=== PATIENT | female | born 1975 | race Caucasian/White ===

== ENCOUNTER 2016-03-22 05:20 | Emergency (ER) | payer OTHER ==
--- NOTE | 2016-03-22 06:44 | DIAGNOSTIC IMAGING REPORT ---
PROCEDURE: CT HEAD WITHOUT CONTRAST INDICATION: Ground level fall, initial encounter TECHNIQUE: Noncontrast axial images with sagittal and coronal reformations. COMPARISON: Head CT 12/21/2015 FINDINGS: Status post left temporal craniotomy with moderate underlying left upper lobe encephalomalacia. Sulci, ventricular system, and brain parenchyma are otherwise normal. No evidence of hemorrhage, CVA or neoplasm. Chronic moderate right maxillary mucosal thickening. Mastoid are clear. IMPRESSION: 1. No acute intracranial abnormality 2. Status post left temporal craniotomy with moderate underlying left temporal lobe encephalomalacia, stable 3. Chronic right maxillary sinus disease 4. Findings discussed with Dr. Wright at 06:40 a.m., [place] Standard Time
--- NOTE | 2016-03-22 06:51 | DIAGNOSTIC IMAGING REPORT ---
PROCEDURE: XR CHEST 2 VIEW INDICATION: COUGH, initial encounter TECHNIQUE: PA and lateral view. COMPARISON: None. FINDINGS: Lungs are clear. Stable right-sided Port-A-Cath. Cardiovascular structures are normal. Bony thorax is unremarkable. IMPRESSION: 1. No acute changes 2. Right Port-A-Cath in place
--- NOTE | 2016-03-22 09:20 | ED ORDER SUMMARY ---
..... Patient: ZOIE PETTY OrderSheet [facility] VisitID: [id number] [place] [address] 40y, F Registration Date/Time: 03/22/2016 ORDER SHEET Weight: 78.0 kg (stated) Allergies: "all pain meds but Dilaudid" GENERAL ORDERS: Chest 2V Urgent (05:42 03/22/2016 Elena Fuentes) (Ack 5:48 CHagerty ER Foundry Hand) (6:10 GUnger) CT Head wo Cont Urgent (05:42 03/22/2016 Elena Fuentes) (Ack 5:48 CHagerty ER Foundry Hand) (6:10 GUnger) Manager Care (Continuous) (syncope) (05:43 03/22/2016 Elena Fuentes) (Ack 5:48 CHagerty ER Foundry Hand) (6:43 HKone R.N.) CBC w Diff Urgent (05:43 03/22/2016 Elena Fuentes) (Ack 5:48 CHagerty ER [facility]ry [facility]) (7:51 EHassan R.N.) CMP Urgent (05:43 03/22/2016 Elena Fuentes) (Ack 5:48 CHagerty ER [facility]ry Hand) (7:51 EHassan R.N.) UA-Culture if indicated Urgent (05:43 03/22/2016 Elena Fuentes) (Ack 5:48 CHagerty ER Foundry Hand) (7:52 EHassan R.N.) Urine Urgent (05:43 03/22/2016 Elena Fuentes) (Ack 5:48 CHagerty ER [facility]ry Hand) (7:52 EHassan R.N.) EKG - ER Stat (05:43 03/22/2016 Elena Fuentes) (Ack 5:48 CHagerty ER [facility]ry [facility]) (5:59 CHategekimana) Pulse oximeter (05:43 03/22/2016 Elena Fuentes) (Ack 5:48 CHagerty ER [facility]ry Hand) (6:43 HKone R.N.) Ice (05:49 03/22/2016 Elena Fuentes) (6:43 HKone R.N.) MEDICATION ORDERS: Tramadol PO 50 mg (NOW) (05:49 03/22/2016 Elena Fuentes) (Ack 5:59 HKone R.N.) (6:41 HKone R.N.) Tramadol PO 50 mg (NOW) (08:02 03/22/2016 Lisa R.N. verbal order read back to Elena Fuentes) (8:53 EHassan R.N.) IV FLUIDS: IV NS : initial bolus 1000 mL (1000 mL/hr), then none - for X1 (NOW) (05:43 03/22/2016 Elena Fuentes) (Ack 5:59 HKone R.N.) (6:41 HKone R.N.) ORDER SHEET NOTES: [Electronically signed by Ashley Cade R.N. (10:03/22/2016)] [Electronically signed by Martin Wright Dr. (08:59 03/26/2016)] [Electronically locked/signed by Ashley Cade R.N. (10:03/22/2016)]
--- NOTE | 2016-03-22 09:20 | ED NURSING NOTES ---
Clinical Report - Nurses [facility] [address] [place] [address] 03/22/2016 5:21 Patient: ZOIE PETTY TRIAGE Triage time 0525. Acuity: LEVEL 3. Chief Complaint: (fall, flu symptoms). SAMIRA COMA SCORE: Wink Coma Scale: 15- eyes open spontaneously (4); best verbal response- oriented x 4 (5); best motor response- obeys commands (6). --05:33 Jaclyn Ruano R.N. 05:26 03/22/16. BP: 98/60. HR: 79. RR: 16 (unlabored). O2 saturation: 98% on room air. Temp: 98.6 F (oral). Pain level now: 09/03. --05:33 Jaclyn Ruano R.N. correction to prior entry - pt did have a positive LOC. --05:37 Jaclyn Ruano R.N. Weight: 78 kg stated. Height/Length: 68 inches Per Patient. BMI: 26.2. --05:24 Jaclyn Ruano R.N. Medications Ascorbic Acid Oral 1000 mg, daily. Collace 100 mg, PRN. Glucosamine-Chondroitin Oral 2 tabs, daily. Hydrochlorothiazide Oral 25 mg, daily. Melatonin 10 mg, at bedtime (take 2 tablets). Mrs, every 12 hours (mushroom supplement). Multivitamins Oral 2 pills (for her). Neurontin Oral 300 mg (take 2 tablets in the am 3 tablets at pm). Relax, PRN. Robaxin 500 mg, PRN. Tramadol 50 mg, PRN. Wellbutrin Oral 150 mg, 2x a day. Zinc 30 mg, daily. --05:31 Jaclyn Ruano R.N. Ativan Oral. --05:31 Jaclyn Ruano R.N. Zofran ODT Oral. --05:31 Jaclyn Ruano R.N. Prochlorperazine Maleate Oral. --05:31 Jaclyn Ruano R.N. Ventolin HFA Inhalation. --05:32 Jaclyn Ruano R.N. Allergies "all pain meds but Dilaudid". --05:38 Jaclyn Ruano R.N. The following entry was struck by Jaclyn Ruano R.N., 05:38 (03/22/16) Reason - wrong value. <<STRICKEN ENTRY-- No Known Drug Allergy. --05:32 Jaclyn Ruano R.N. --END STRIKE>>. Medication/allergy information source: the patient. --05:33 Jaclyn Ruano R.N. History Arrived by EMS. Historian: patient. Primary physician (Dr. Mckinley Frost). ( pt got up to take some medicine, she fell in the kitchen, striking the back of her head. pt denies LOC, bump to back of head. pt has also had flu symptoms the past few days.). This started just prior to arrival. Treatment PHOTOTYPESETTER OPERATOR: None. SOCIAL HX: Never smoker. No alcohol use or drug use. ABUSE ASSESSMENT: No report of abuse. FALL RISK ASSESSMENT: Fall risk assessment completed. No fall risk identified. NUTRITIONAL RISK ASSESSMENT: The nutritional risk assessment revealed no deficiencies. FUNCTIONAL ASSESSMENT: Functional assessment: no impairments noted. LEARNING NEEDS ASSESSMENT: The learning needs assessment revealed no barriers. SKIN INTEGRITY ASSESSMENT: Skin integrity risk assessment completed. No skin integrity risk identified. --05:33 Jaclyn Ruano R.N. PROBLEMS: Tension-Type Headache. Thrombocytopenia. Gastroesophageal Reflux. Mitral Valve Prolapse. Headache. Intracranial Mass. Hypertension. Cancer. Infectious Mononucleosis. --05:33 Jaclyn Ruano R.N. ADDITIONAL SURGERIES: Brain tumor. Hip Surgery. Hysterectomy. Knee Surgery. Mastectomy. --05:33 Jaclyn Ruano R.N. Interventions ID band on patient. To treatment room. --05:33 Jaclyn Ruano R.N. PHYSICAL ASSESSMENT bump noted to back of head. To room via stretcher. GENERAL / NEURO / PSYCH: Alert. Oriented X 4. Appears in pain. RESPIRATORY: Respirations not labored. SKIN: Skin intact. Skin is warm and dry. Normal skin turgor. --05:39 Jaclyn Ruano R.N. NURSING PROGRESS NOTES Patient gowned. Two patient identifiers checked. Call light placed in reach. Side rails up x 2. Bed placed in lowest position. Brakes of bed on. Patient ready for evaluation. --05:33 Jaclyn Ruano R.N. EKG time: (0555). EKG was ordered, performed by a tech and shown to the ED physician. --05:59 Stacey Garvin 06:20 03/22/2016 Site #1 accessed indwelling Powerport in the right subclavian using a 20g, 1 inch needle following sterile technique; 1 attempt. Good blood return noted. Site prepped with chlorhexidine. Blood drawn: rainbow set. Labeled in the presence of the patient and sent to the lab. Flushed with 10 mL saline. --06:41 Jaclyn Ruano R.N. 06:25 03/22/2016 Started bag #1 1000 mL IV Fluids IV NS (Saline); at 999 mL/hr over 1 hour(s) via site #1 via IV pump. Allergies verified and confirmed 5 rights. IV patency established. IV site checked: no pain, redness, or swelling. IV flushed thoroughly pre- and post-medication administration. --06:41 Jaclyn Ruano R.N. 06:30 03/22/2016 Tramadol (TraMADol HCl) PO Tablets 50 mg given. Allergies verified, confirmed 5 rights and sedative warning given to the patient. --06:41 Jaclyn Ruano R.N. pt also given ice pack for bump to back of head. Cardiac rhythm: normal sinus rhythm. surveillance monitor, pulse oximeter and NIBP monitor placed on patient; color television console monitor- Lead II. --06:51 Jaclyn Ruano R.N. 07:48 03/22/2016 Site #1 reassessed; patent and infusing well. Converted to saline lock. --07:48 Ashley Cade R.N. 07:51 03/22/2016 Tramadol PO Response: no adverse reaction symptoms are the same. The patient feels the same. --07:51 Ashley Cade R.N. 07:53 03/22/2016 IV Fluids IV NS Response: no adverse reaction symptoms have improved the patient feels better. --07:53 Ashley Cade R.N. 07:00 03/22/16. BP: 117/69 taken on the right arm, while lying. HR: 89. RR: 14. O2 saturation: 100% on room air. Temp: 99.8 F (oral). Pain level now: 08/04. --07:54 Ashley Cade R.N. Monitoring of patient in place. Reassurance given. Reassessment after fluids administered. She is calm and resting quietly. Overall patient status is improved- she states feels the same. GENERAL / NEURO / PSYCH: The patient reports headache. RESPIRATORY: Denies difficulty breathing. CVS: Denies chest pain. GI / : Denies nausea. Two patient identifiers checked. Call light placed in reach. Side rails up x 2. Bed placed in lowest position. Brakes of bed on. Brakes of chair on. Care transferred and report received (Monisha Camarillo). --07:54 Ashley Cade R.N. 08:01 03/22/2016 IV Fluids IV NS Discontinued: bag #1 infused upon discharge. Total amount infused: 68259 mL. IV patency established. IV site checked: no pain, redness, or swelling. IV flushed thoroughly. --10:01 Ashley Cade R.N. 08:28 03/22/2016 Tramadol (TraMADol HCl) PO Tablets 50 mg given. Allergies verified, confirmed 5 rights and sedative warning given to the patient. --08:53 Ashley Cade R.N. 09:35 03/22/2016 Tramadol PO Response: no adverse reaction pain is improving. Symptoms have improved the patient feels better. --10:00 Ashley Cade R.N. DISPOSITION / DISCHARGE 09:40 03/22/2016 Site #1 removed upon discharge. Manual pressure and bandaid applied. --09:56 Ashley Cade R.N. Cardiac rhythm: normal sinus rhythm. Departure time: 0945 AM. Condition at departure: improved and stable. The goals identified in the patient's plan of care were met. No learning barriers present. Discharge instructions provided and reviewed with the patient and spouse. Patient verbalized understanding. Written instructions provided in Greek. ( Instructed to get in touch with MD for follow-up. Verbalizes understanding, all instructions reviewed. Right subclavian port deassessed with heparin and flushed as per policy/sterile technique applied. Pt tolerated well.). No medication instructions, treatment instructions or referrals given to the patient. The patient was discharged by the physician. She was discharged home and accompanied by spouse. She left the Emergency Department in a wheelchair and via private vehicle. Spouse driving. FALL RISK ASSESSMENT: Fall risk assessment completed. No fall risk identified. --10:00 Ashley Cade R.N. 09:30 03/22/16. BP: 107/65 (regular adult cuff) taken on the right arm, via an automated monitor, while lying. HR: 80 (regular and normal rate). RR: 14 (unlabored). O2 saturation: 100% on room air. Temp: 99.8 F (oral). Pain level now: 06/04. --10:00 Ashley Cade R.N. Locked/Released at 03/22/2016 10:01 by Ashley Cade R.N.
--- NOTE | 2016-03-22 09:20 | ED CLINICAL REPORT ---
Clinical Report - Physicians/Mid Levels [facility] [address] [place] [address] 03/22/2016 5:21 Patient: ZOIE PETTY Arrived- By ambulance. Historian- patient. HISTORY OF PRESENT ILLNESS Is no longer unconscious. She has recovered. Chief Complaint: SINGLE SYNCOPAL EPISODE. It was abrupt in onset and has been intermittent. 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 This occurred just prior to arrival today. Event was witnessed. The patient felt faint, lost consciousness and collapsed. The event occurred during exertion (walking). The patient had preceding symptoms of light-headedness. No preceding symptoms of chest pain or abdominal pain. Had a single episode. The episode was brief and lasted minutes. Location of injuries- head. (Patient reports cough and congestion as well as production of green sputum for the past few days. Patient presented she was walking to the cabinet to get [id number] Mucinex when the event occurred. Patient reports no shortness of breath. Patient states he does have a history of brain tumor In the past with resection. Patient reports no numbness, tingling, or focal weakness. Patient states that she is currently on antibiotics. Reports being on azithromycin). Similar symptoms previously: None. Recent medical care: The patient was seen recently in a clinic. REVIEW OF SYSTEMS No headache, chest pain, palpitations, abdominal pain or vomiting. No diarrhea or skin rash. All systems otherwise negative, except as recorded above. PAST HISTORY See nurses notes. Medications: Ventolin HFA Inhalation. Prochlorperazine Maleate Oral. Zofran ODT Oral. Ativan Oral. Ascorbic Acid Oral 1000 mg, daily. Collace 100 mg, PRN. Glucosamine-Chondroitin Oral 2 tabs, daily. Hydrochlorothiazide Oral 25 mg, daily. Melatonin 10 mg, at bedtime (take 2 tablets). Mrs, every 12 hours (mushroom supplement). Multivitamins Oral 2 pills (for her). Neurontin Oral 300 mg (take 2 tablets in the am 3 tablets at pm). Relax, PRN. Robaxin 500 mg, PRN. Tramadol 50 mg, PRN. Wellbutrin Oral 150 mg, 2x a day. Zinc 30 mg, daily. Allergies: "all pain meds but Dilaudid". SOCIAL HISTORY Never smoker. No alcohol use or drug use. No recent travel. Is a local resident. FAMILY HISTORY Negative. ADDITIONAL NOTES The nursing notes have been reviewed. PHYSICAL EXAM Vital Signs: 03/22/2016 05:27 BP: 98/60. HR: 79. RR: 16. O2 saturation: 98%. Temp: 98.6 F. Pain level now: 7/10. Blood pressure normal. Oxygen saturation normal. Appearance: Alert. No acute distress. Eyes: Pupils equal, round and reactive to light. No nystagmus. Extraocular movements normal. ENT: Normal ENT inspection. TM's normal. Dry mucous membranes present. Pharynx normal. No trouble handling secretions or injury to the tongue. Neck: Normal inspection. Neck supple. No meningeal signs. (no step-offs. No crepitus. No bony abnormalities. No midline tenderness.). CVS: Normal heart rate and rhythm. Heart sounds normal. Pulses normal. Respiratory: No respiratory distress. No respiratory distress. Breath sounds normal. No decreased air movement, rales, wheezes or rhonchi. Abdomen: Soft and nontender. No organomegaly. Back: Normal inspection. No CVA tenderness. (No step-offs. No crepitus. Normal range of motion. No overlying skin changes). Skin: Skin warm and dry. Normal skin color. No rash. Normal skin turgor. Extremities: Extremities exhibit normal ROM. No lower extremity edema. Neuro: Alert. Oriented X 3. Mood/affect normal. Speech normal. Cranial nerves normal (as tested). No cerebellar findings. No motor deficit. No sensory deficit. LABS, X-RAYS, AND EKG EKG: No acute ischemia. Normal EKG. Normal sinus rhythm. Rate: 68. Normal P waves. Normal MUNA. Normal QRS complex. Normal axis. Normal ST and T waves, QT and QTc. The study has been interpreted contemporaneously. The study has been independently viewed by me. The EKG appears to be a good tracing. Chest X-ray: (PROCEDURE: XR CHEST 2 VIEW INDICATION: COUGH, initial encounter TECHNIQUE: PA and lateral view. COMPARISON: None. FINDINGS: Lungs are clear. Stable right-sided Port-A-Cath. Cardiovascular structures are normal. Bony thorax is unremarkable. IMPRESSION: 1. No acute changes 2. Right Port-A-Cath in place). Views: PA and lateral. The X-rays were independently viewed by me, interpreted by the radiologist and discussed with the radiologist. CT Head: (PROCEDURE: CT HEAD WITHOUT CONTRAST INDICATION: Ground level fall, initial encounter TECHNIQUE: Noncontrast axial images with sagittal and coronal reformations. COMPARISON: Head CT 12/21/2015 FINDINGS: Status post left temporal craniotomy with moderate underlying left upper lobe encephalomalacia. Sulci, ventricular system, and brain parenchyma are otherwise normal. No evidence of hemorrhage, CVA or neoplasm. Chronic moderate right maxillary mucosal thickening. Mastoid are clear. IMPRESSION: 1. No acute intracranial abnormality 2. Status post left temporal craniotomy with moderate underlying left temporal lobe encephalomalacia, stable 3. Chronic right maxillary sinus disease). Laboratory Tests: UA-Culture if indicated: (MITALI: 03/22/2016 08:00) ( [facility] [place] 08:33) Final results Test Result Flag Units (Reference) URINE COLOR YELLOW URINE APPEARANCE CLEAR URINE GLUCOSE NEGATIVE (NEGATIVE) URINE BILIRUBIN NEGATIVE (NEGATIVE) URINE KETONE NEGATIVE (NEGATIVE) URINE SPECIFIC GRAVITY <= 1.005 L (1.010-1.030) URINE PH 6.5 (5.0-8.0) URINE PROTEIN NEGATIVE (NEGATIVE) URINE UROBILINOGEN 0.2 EU/dL (0.2-1.0) URINE NITRITE NEGATIVE (NEGATIVE) URINE BLOOD NEGATIVE (NEGATIVE) URINE LEUK ESTERASE NEGATIVE (NEGATIVE) URINE RBC RARE rbc/hpf (0-1) URINE WBC 0-1 wbc/hpf (0-1) URINE EPITHELIAL CELLS 1-3 EPI/hpf (0-5) URINE BACTERIA NONE SEEN (NONE SEEN) URINE COMMENT CULT NOT INDICATED URINE CULTURES ARE SET-UP BASED ON THE FOLLOWING CRITERIA:POSITIVE NITRITEPOSITIVE LEUKOCYTE ESTERASEGREATER THAN 10 WHITE BLOOD CELLSMODERATE (2+) OR GREATER BACTERIA Urine: (MITALI: 03/22/2016 08:00) ( [facility] [place]/22/[place] 08:12) Final results Test Result Flag Units (Reference) URINE NEGATIVE CBC w Diff: (MITALI: 03/22/2016 06:20) ( MsgRcvd 03/22/2016 06:35) Final results Test Result Flag Units (Reference) WHITE BLOOD COUNT 2.3 L K/uL (4.5-11.5) RED BLOOD COUNT 3.24 L M/uL (4.00-5.20) HEMOGLOBIN 10.0 L gm/dL (12.0-16.0) HEMATOCRIT 30.1 L % (36.0-46.0) MEAN CELL VOLUME 93 fL (80-100) MEAN CORPUSCULAR HGB 31 pg (26-34) MEAN CORPUSCULAR HGB CONC 33 g/dL (31-37) RED CELL DISTRIBUTION WIDTH 14.0 % (11.6-14.8) PLATELET COUNT 77 L K/uL (150-400) NEUTROPHIL % 66.3 % (50-75) LYMPH % 18.0 L % (25-40) MONO % 14.9 H % (3-14) EOSINOPHIL % 0.8 % (0-4) BASOPHIL % 0 % (0-2) CMP: (MITALI: 03/22/2016 06:20) ( MsgRcvd 03/22/2016 06:49) Final results Test Result Flag Units (Reference) GLUCOSE 101 mg/dL (70-110) BUN 6 L mg/dL (7-18) CREATININE 0.7 mg/dL (0.6-1.3) Estimated GFR >60 mL/min Estimated GFR- >60 mL/min Note: Persistent reduction over 3 months in eGFR<60 mL/min/1.73 m2 defines CKD. Patients with eGFR values>=60 mL/min/1.73 m2 may also have CKD if evidence ofpersistent proteinuria. Additional information may be foundat [email or web address].org. SODIUM 138 mmol/L (136-145) POTASSIUM 3.3 L mmol/L (3.5-5.1) CHLORIDE 100 mmol/L (98-107) CARBON DIOXIDE 26 mmol/L (21-32) CALCIUM 7.4 L mg/dL (8.5-10.1) TOTAL PROTEIN 6.2 L g/dL (6.4-8.2) ALBUMIN 3.0 L g/dL (3.3-5.0) BILIRUBIN, TOTAL 0.3 mg/dL (0.0-1.0) ALKALINE PHOSPHATASE 412 H U/L (46-116) AST (SGOT) 197 H U/L (15-37) ALT (SGPT) 233 H U/L (12-78) . PROGRESS AND PROCEDURES Course of Care: the patient is a 40-year-old female with signs and symptoms that are consistent with likely upper respiratory tract infection. Patient will be evaluated with CT scan of the head as well as chest x-ray. Patient has positive loss of consciousness with the head injury. Patient also does not remember certain aspects of the fall today. Patient without any focal neurological deficits. Patient is agreeable to treatment plan. Patient will also be evaluated with [place] syncope rule. EKG and of choice as well as complete blood cell count will be ordered. Patient is resting in bed and in no acute distress. the patient's workup was unremarkable for leukopenia without neutropenia As well as elevated liver enzymes. In discussion with patient, patient is on medications for her brain tumorwhich cause her to have elevation in her liver enzymes. The patient reports that she has been taken off these medications and is awaiting her liver enzymes to return to normal before she restarts these medications. No other acute abnormality noted on patient's workup. CT scan of the head/any acute intracranial hemorrhage. Chest x-ray is clear. The [place] syncope rule indicates patient is at low risk for adverse outcome. We will consult patient's oncologist or further recommendations and management. we have been unable to contact the patient's oncologist. I tried several times to call the office. I was directed to the patient's nurse. I left a message there to contact us. The loading unit operator did also try to contact the office multiple times. Have not been able to hear back from their office. I discussed with the patientthe need to follow up with her oncologist given the factshe had these episodes. Patient reports that she will be able to contact her oncologistreadily and has the direct line. Patient states that she will follow up and try to make an appointment as soon as possible ideally within a day or 2. The patient is appropriate and in no acute distress. Patient continues to be nontoxic. Workup is otherwise unremarkable. Patient is a good outpatient candidate. Discussed with patient diagnosis, workup, home care, follow-up, and return precautions. All questions answered. The patient expressed understanding of these instructions and was agreeable to. Consult obtained. Dr. Frost with [facility]. CLINICAL IMPRESSION Syncope of unknown cause .12 lead EKG performed. Mild dehydration Acute viral upper respiratory infection. Acute transaminitis, secondary to chemotherapy medications. INSTRUCTIONS Warnings: GENERAL WARNINGS: Return or contact your physician immediately if your condition worsens or changes unexpectedly, if not improving as expected, or if other problems arise. SPECIFICALLY, return if you develop chest pain, fluttering sensation in your chest, lightheadedness, fainting, numbness, weakness or extreme fatigue. Your Current Medications: CONTINUE TAKING THE FOLLOWING MEDICATIONS: Ascorbic Acid Oral : 1000 mg daily. Ativan Oral. Collace* : 100 mg PRN. Glucosamine-Chondroitin Oral : 2 tabs daily. Hydrochlorothiazide Oral : 25 mg daily. Melatonin* : 10 mg at bedtime, take 2 tablets. Mrs* : every 12 hours, mushroom supplement. Multivitamins Oral : 2 pills, for her. Neurontin Oral : 300 mg, take 2 tablets in the am 3 tablets at pm. Prochlorperazine Maleate Oral. Relax* : PRN. Robaxin* : 500 mg PRN. Tramadol* : 50 mg PRN. Ventolin HFA Inhalation. Wellbutrin Oral : 150 mg 2x a day. Zinc* : 30 mg daily. Zofran ODT Oral. Follow-up: Return to the emergency department as needed. Follow up with your doctor in three days. Reason for referral: recheck today's concerns. Summary of care provided to patient via paper. Screening today revealed the patient's blood pressure to be in the normal range. The patient should follow up with a primary care provider for blood pressure management. Understanding of the discharge instructions verbalized by patient. (Electronically signed by Martin Wright Dr. 03/26/2016 8:59)
--- NOTE | 2016-03-22 09:20 | ED NURSING NOTES ---
Clinical Report - Nurses [facility] [address] [place] [place] [address] 03/22/2016 5:21 Patient: ZOIE PETTY TRIAGE Triage time 0525. Acuity: LEVEL 3. Chief Complaint: (fall, flu symptoms). SAMIRA COMA SCORE: [place] Coma Scale: 15- eyes open spontaneously (4); best verbal response- oriented x 4 (5); best motor response- obeys commands (6). --05:33 Jaclyn Ruano R.N. 05:26 03/22/16. BP: 98/60. HR: 79. RR: 16 (unlabored). O2 saturation: 98% on room air. Temp: 98.6 F (oral). Pain level now: 09/03. --05:33 Jaclyn Ruano R.N. correction to prior entry - pt did have a positive LOC. --05:37 Jaclyn Ruano R.N. Weight: 78 kg stated. Height/Length: 68 inches Per Patient. BMI: 26.2. --05:24 Jaclyn Ruano R.N. Medications Ascorbic Acid Oral 1000 mg, daily. Collace 100 mg, PRN. Glucosamine-Chondroitin Oral 2 tabs, daily. Hydrochlorothiazide Oral 25 mg, daily. Melatonin 10 mg, at bedtime (take 2 tablets). Mrs, every 12 hours (mushroom supplement). Multivitamins Oral 2 pills (for her). Neurontin Oral 300 mg (take 2 tablets in the am 3 tablets at pm). Relax, PRN. Robaxin 500 mg, PRN. Tramadol 50 mg, PRN. Wellbutrin Oral 150 mg, 2x a day. Zinc 30 mg, daily. --05:31 Jaclyn Ruano R.N. Ativan Oral. --05:31 Jaclyn Ruano R.N. Zofran ODT Oral. --05:31 Jaclyn Ruano R.N. Prochlorperazine Maleate Oral. --05:31 Jaclyn Ruano R.N. Ventolin HFA Inhalation. --05:32 Jaclyn Ruano R.N. Allergies "all pain meds but Dilaudid". --05:38 Jaclyn Ruano R.N. The following entry was struck by Jaclyn Ruano R.N., 05:38 (03/22/16) Reason - wrong value. <<STRICKEN ENTRY-- No Known Drug Allergy. --05:32 Jaclyn Ruano R.N. --END STRIKE>>. Medication/allergy information source: the patient. --05:33 Jaclyn Ruano R.N. History Arrived by EMS. Historian: patient. Primary physician (Dr. Mckinley Frost). ( pt got up to take some medicine, she fell in the kitchen, striking the back of her head. pt denies LOC, bump to back of head. pt has also had flu symptoms the past few days.). This started just prior to arrival. Treatment SHORTS SIFTER: None. SOCIAL HX: Never smoker. No alcohol use or drug use. ABUSE ASSESSMENT: No report of abuse. FALL RISK ASSESSMENT: Fall risk assessment completed. No fall risk identified. NUTRITIONAL RISK ASSESSMENT: The nutritional risk assessment revealed no deficiencies. FUNCTIONAL ASSESSMENT: Functional assessment: no impairments noted. LEARNING NEEDS ASSESSMENT: The learning needs assessment revealed no barriers. SKIN INTEGRITY ASSESSMENT: Skin integrity risk assessment completed. No skin integrity risk identified. --05:33 Jaclyn Ruano R.N. PROBLEMS: Tension-Type Headache. Thrombocytopenia. Gastroesophageal Reflux. Mitral Valve Prolapse. Headache. Intracranial Mass. Hypertension. Cancer. Infectious Mononucleosis. --05:33 Jaclyn Ruano R.N. ADDITIONAL SURGERIES: Brain tumor. Hip Surgery. Hysterectomy. Knee Surgery. Mastectomy. --05:33 Jaclyn Ruano R.N. Interventions ID band on patient. To treatment room. --05:33 Jaclyn Ruano R.N. PHYSICAL ASSESSMENT bump noted to back of head. To room via stretcher. GENERAL / NEURO / PSYCH: Alert. Oriented X 4. Appears in pain. RESPIRATORY: Respirations not labored. SKIN: Skin intact. Skin is warm and dry. Normal skin turgor. --05:39 Jaclyn Ruano R.N. NURSING PROGRESS NOTES Patient gowned. Two patient identifiers checked. Call light placed in reach. Side rails up x 2. Bed placed in lowest position. Brakes of bed on. Patient ready for evaluation. --05:33 Jaclyn Ruano R.N. EKG time: (0555). EKG was ordered, performed by a tech and shown to the ED physician. --05:59 Stacey Garvin 06:20 03/22/2016 Site #1 accessed indwelling Powerport in the right subclavian using a 20g, 1 inch needle following sterile technique; 1 attempt. Good blood return noted. Site prepped with chlorhexidine. Blood drawn: rainbow set. Labeled in the presence of the patient and sent to the lab. Flushed with 10 mL saline. --06:41 Jaclyn Ruano R.N. 06:25 03/22/2016 Started bag #1 1000 mL IV Fluids IV NS (Saline); at 999 mL/hr over 1 hour(s) via site #1 via IV pump. Allergies verified and confirmed 5 rights. IV patency established. IV site checked: no pain, redness, or swelling. IV flushed thoroughly pre- and post-medication administration. --06:41 Jaclyn Ruano R.N. 06:30 03/22/2016 Tramadol (TraMADol HCl) PO Tablets 50 mg given. Allergies verified, confirmed 5 rights and sedative warning given to the patient. --06:41 Jaclyn Ruano R.N. pt also given ice pack for bump to back of head. Cardiac rhythm: normal sinus rhythm. personnel security assistant, pulse oximeter and NIBP monitor placed on patient; sheet metal erector- Lead II. --06:51 Jaclyn Ruano R.N. 07:48 03/22/2016 Site #1 reassessed; patent and infusing well. Converted to saline lock. --07:48 Ashley Cade R.N. 07:51 03/22/2016 Tramadol PO Response: no adverse reaction symptoms are the same. The patient feels the same. --07:51 Ashley Cade R.N. 07:53 03/22/2016 IV Fluids IV NS Response: no adverse reaction symptoms have improved the patient feels better. --07:53 Ashley Cade R.N. 07:00 03/22/16. BP: 117/69 taken on the right arm, while lying. HR: 89. RR: 14. O2 saturation: 100% on room air. Temp: 99.8 F (oral). Pain level now: 08/04. --07:54 Ashley Cade R.N. Monitoring of patient in place. Reassurance given. Reassessment after fluids administered. She is calm and resting quietly. Overall patient status is improved- she states feels the same. GENERAL / NEURO / PSYCH: The patient reports headache. RESPIRATORY: Denies difficulty breathing. CVS: Denies chest pain. GI / : Denies nausea. Two patient identifiers checked. Call light placed in reach. Side rails up x 2. Bed placed in lowest position. Brakes of bed on. Brakes of chair on. Care transferred and report received (Monisha Camarillo). --07:54 Ashley Cade R.N. 08:01 03/22/2016 IV Fluids IV NS Discontinued: bag #1 infused upon discharge. Total amount infused: 61476 mL. IV patency established. IV site checked: no pain, redness, or swelling. IV flushed thoroughly. --10:01 Ashley Cade R.N. 08:28 03/22/2016 Tramadol (TraMADol HCl) PO Tablets 50 mg given. Allergies verified, confirmed 5 rights and sedative warning given to the patient. --08:53 Ashley Cade R.N. 09:35 03/22/2016 Tramadol PO Response: no adverse reaction pain is improving. Symptoms have improved the patient feels better. --10:00 Ashley Cade R.N. DISPOSITION / DISCHARGE 09:40 03/22/2016 Site #1 removed upon discharge. Manual pressure and bandaid applied. --09:56 Ashley Cade R.N. Cardiac rhythm: normal sinus rhythm. Departure time: 0945 AM. Condition at departure: improved and stable. The goals identified in the patient's plan of care were met. No learning barriers present. Discharge instructions provided and reviewed with the patient and spouse. Patient verbalized understanding. Written instructions provided in Greek. ( Instructed to get in touch with MD for follow-up. Verbalizes understanding, all instructions reviewed. Right subclavian port deassessed with heparin and flushed as per policy/sterile technique applied. Pt tolerated well.). No medication instructions, treatment instructions or referrals given to the patient. The patient was discharged by the physician. She was discharged home and accompanied by spouse. She left the Emergency Department in a wheelchair and via private vehicle. Spouse driving. FALL RISK ASSESSMENT: Fall risk assessment completed. No fall risk identified. --10:00 Ashley Cade R.N. 09:30 03/22/16. BP: 107/65 (regular adult cuff) taken on the right arm, via an automated monitor, while lying. HR: 80 (regular and normal rate). RR: 14 (unlabored). O2 saturation: 100% on room air. Temp: 99.8 F (oral). Pain level now: 06/04. --10:00 Ashley Cade R.N. Locked/Released at 03/22/2016 10:01 by Ashley Cade R.N.
--- NOTE | 2016-03-22 09:20 | ED ORDER SUMMARY ---
..... Patient: ZOIE PETTY OrderSheet [facility] VisitID: [id number] [place] [address] 40y, F Registration Date/Time: 03/22/2016 ORDER SHEET Weight: 78.0 kg (stated) Allergies: "all pain meds but Dilaudid" GENERAL ORDERS: Chest 2V Urgent (05:42 03/22/2016 Elena Fuentes) (Ack 5:48 CHagerty ER Heater Furnace) (6:10 GUnger) CT Head wo Cont Urgent (05:42 03/22/2016 Elena Fuentes) (Ack 5:48 CHagerty ER Heater Furnace) (6:10 GUnger) Fender Mechanic Apprentice (Continuous) (syncope) (05:43 03/22/2016 Elena Fuentes) (Ack 5:48 CHagerty ER Heater Furnace) (6:43 HKone R.N.) CBC w Diff Urgent (05:43 03/22/2016 Elena Fuentes) (Ack 5:48 CHagerty ER Heater [employer]ace) (7:51 EHassan R.N.) CMP Urgent (05:43 03/22/2016 Elena Fuentes) (Ack 5:48 CHagerty ER Heater Furnace) (7:51 EHassan R.N.) UA-Culture if indicated Urgent (05:43 03/22/2016 Elena Fuentes) (Ack 5:48 CHagerty ER Heater Furnace) (7:52 EHassan R.N.) Urine Urgent (05:43 03/22/2016 Elena Fuentes) (Ack 5:48 CHagerty ER Heater Furnace) (7:52 EHassan R.N.) EKG - ER Stat (05:43 03/22/2016 Elena Fuentes) (Ack 5:48 CHagerty ER Heater Furnace) (5:59 CHategekimana) Pulse oximeter (05:43 03/22/2016 Elena Fuentes) (Ack 5:48 CHagerty ER Heater Furnace) (6:43 HKone R.N.) Ice (05:49 03/22/2016 Elena Fuentes) (6:43 HKone R.N.) MEDICATION ORDERS: Tramadol PO 50 mg (NOW) (05:49 03/22/2016 Elena Fuentes) (Ack 5:59 HKone R.N.) (6:41 HKone R.N.) Tramadol PO 50 mg (NOW) (08:02 03/22/2016 Lisa R.N. verbal order read back to Elena Fuentes) (8:53 EHassan R.N.) IV FLUIDS: IV NS : initial bolus 1000 mL (1000 mL/hr), then none - for X1 (NOW) (05:43 03/22/2016 Elena Fuentes) (Ack 5:59 HKone R.N.) (6:41 HKone R.N.) ORDER SHEET NOTES: [Electronically signed by Ashley Cade R.N. (10:03/22/2016)] [Electronically signed by Martin Wright Dr. (08:59 03/26/2016)] [Electronically locked/signed by Ashley Cade R.N. (10:03/22/2016)]
--- NOTE | 2016-03-26 08:59 | ED MAR SUMMARY ---
..... Medication Administration Record [facility] [address] [place] [address] Patient: ZOIE PETTY Visit ID: [id number] 40y, F Weight: 78.0 kg Height/Length: 68 in BMI: 26.2 ALLERGIES: "all pain meds but Dilaudid" Start 06:25 03/22/2016 Jaclyn Ruano R.N., Stop 08:03/22/2016 Ashley Cade R.N. Medication Administered: IV NS (SALINE), Dose: IV Fluids over 1 hour(s), Rate: 999 mL/hr, Dispensed: 1000 mL bag, Site: #1 right subclav. Medication Ordered: IV NS : initial bolus 1000 mL (1000 mL/hr), then none - for X1 (NOW). Given 06:30 03/22/2016 Jaclyn Ruano R.N. Medication Administered: TRAMADOL [PO] (TRAMADOL HCL), Dose: 50 mg Tablets PO. Medication Ordered: Tramadol PO 50 mg (NOW). Given 08:28 03/22/2016 Ashley Cade RMaryNMary Medication Administered: TRAMADOL [PO] (TRAMADOL HCL), Dose: 50 mg Tablets PO. Medication Ordered: Tramadol PO 50 mg (NOW).
--- NOTE | 2016-03-26 08:59 | ED MED RECONCILIATION SUMMARY ---
Patient: ZOIE PETTY Medication Reconciliation Report [facility] VisitID: [id number] [address] [place] [address] 40y, F Registration Date/Time: 03/22/2016 Weight: 78.0 kg Height/Length: 68 in. BMI: 26.2 ALLERGIES: "all pain meds but Dilaudid" The patient's Home Medications are listed below: CONTINUE TAKING THE FOLLOWING MEDICATIONS: Ascorbic Acid Oral 1000 mg, daily Ativan Oral Collace 100 mg, PRN Glucosamine-Chondroitin Oral 2 tabs, daily Hydrochlorothiazide Oral 25 mg, daily Melatonin 10 mg, at bedtime, take 2 tablets Mrs, every 12 hours, mushroom supplement Multivitamins Oral 2 pills, for her Neurontin Oral 300 mg, take 2 tablets in the am3 tablets at pm Prochlorperazine Maleate Oral Relax, PRN Robaxin 500 mg, PRN Tramadol 50 mg, PRN Ventolin HFA Inhalation Wellbutrin Oral 150 mg, 2x a day Zinc 30 mg, daily Zofran ODT Oral The source(s) of the original Home Medication information: patient The following Medications were given to the patient in the Emergency Department: IV NS IV Fluids bolus 0, then 999 mL/hr, administered: 03/22/2016 6:25:00 AM Tramadol [PO] PO 50 mg, administered: 03/22/2016 6:30:00 AM Tramadol [PO] PO 50 mg, administered: 03/22/2016 8:28:00 AM The following Medications were prescribed to the patient: None.
--- NOTE | 2016-03-26 08:59 | ED DISCHARGE INSTRUCTIONS ---
Patient: ZOIE PETTY General Instructions [facility] VisitID: [id number] [place] [address] 40y, F Registration Date/Time: 03/22/2016 Syncope of unknown cause .12 lead EKG performed. Mild dehydration Acute viral upper respiratory infection. Acute transaminitis, secondary to chemotherapy medications. INSTRUCTIONS Warnings: GENERAL WARNINGS: Return or contact your physician immediately if your condition worsens or changes unexpectedly, if not improving as expected, or if other problems arise. SPECIFICALLY, return if you develop chest pain, fluttering sensation in your chest, lightheadedness, fainting, numbness, weakness or extreme fatigue. Your Current Medications: CONTINUE TAKING THE FOLLOWING MEDICATIONS: Ascorbic Acid Oral : 1000 mg daily. Ativan Oral. Collace* : 100 mg PRN. Glucosamine-Chondroitin Oral : 2 tabs daily. Hydrochlorothiazide Oral : 25 mg daily. Melatonin* : 10 mg at bedtime, take 2 tablets. Mrs* : every 12 hours, mushroom supplement. Multivitamins Oral : 2 pills, for her. Neurontin Oral : 300 mg, take 2 tablets in the am 3 tablets at pm. Prochlorperazine Maleate Oral. Relax* : PRN. Robaxin* : 500 mg PRN. Tramadol* : 50 mg PRN. Ventolin HFA Inhalation. Wellbutrin Oral : 150 mg 2x a day. Zinc* : 30 mg daily. Zofran ODT Oral. Follow-up: Return to the emergency department as needed. Follow up with your doctor in three days. Reason for referral: recheck today's concerns. Summary of care provided to patient via paper. Screening today revealed the patient's blood pressure to be in the normal range. The patient should follow up with a primary care provider for blood pressure management. Understanding of the discharge instructions verbalized by patient. ADDITIONAL INFORMATION Fainting:Uncertain Cause Fainting (syncope) is a temporary loss of consciousness ("passing out"). It occurs when blood flow to the brain is reduced. Near-fainting ("near-syncope") is very similar to fainting, but you do not fully "pass out". The common minor causes of fainting include: sudden fear, pain, nausea, emotional stress and overexertion. Suddenly standing up after sitting or lying for a long time can also cause fainting. The more serious causes for fainting are due to either a very slow or very fast or very slow heart beat ("arrhythmia"), other types of heart disease, dehydration, blood loss, seizure, stroke or ruptured blood vessel in the brain. Taking too much high blood pressure medicine can also cause low blood pressure and fainting. The exact cause of your episode is not certain. However, the tests today did not show any of the serious causes of fainting. Sometimes further testing is needed to find out if a serious problem exists. Therefore, it is important that you follow-up with your doctor as advised. Home Care: 1) Rest today. You may resume your normal activities when you are feeling back to normal. It is best to remain with someone who can check on you for the next 24 hours to watch for another episode of fainting. 2) If you become light-headed or dizzy, lie down immediately or sit with your head between your knees. 3) Because we do not know the exact cause of your near fainting spell, it is possible for another spell to occur without warning. Therefore, do not drive a car or operate dangerous equipment, do not take a bath alone (use a shower instead) and do not swim alone until your doctor says that you are no longer in danger of having another fainting spell. Follow Up with your doctor as advised. Get Prompt Medical Attention if any of the following occur: -- Another fainting spell occurs, which is not explained by the common causes listed above -- Chest, arm, neck, jaw, back or abdominal pain -- Shortness of breath -- Severe headache or seizure -- Blood in vomit, stools (black or red color) -- Unexpected vaginal bleeding -- Palpitations (very rapid or very slow or irregular heart beat) -- Signs of stroke: Weakness of an arm or leg or one side of the face Difficulty with speech or vision Extreme drowsiness, confusion, dizziness or fainting Viral Respiratory Illness [Adult] You have an Upper Respiratory Illness (URI) caused by a virus. This illness is contagious during the first few days. It is spread through the air by coughing and sneezing or by direct contact (touching the sick person and then touching your own eyes, nose or mouth). Most viral illnesses go away within 7-10 days with rest and simple home remedies. Sometimes, the illness may last for several weeks. Antibiotics will not kill a virus and are generally not prescribed for this condition. Home Care: 1) If symptoms are severe, rest at home for the first 2-3 days. When you resume activity, don't let yourself get too tired. 2) Avoid being exposed to cigarette smoke (yours or others). 3) Tylenol (acetaminophen) or ibuprofen (Advil, Motrin) will help fever, muscle aching and headache. (Persons under 18 with fever should not take aspirin since this may cause liver damage.) 4) Your appetite may be poor, so a light diet is fine. Avoid dehydration by drinking 6-8 glasses of fluids per day (water, soft drinks, juices, tea, soup). Extra fluids will help loosen secretions in the nose and lungs. 5) Vkgg-[id number] cold medicines will not shorten the length of time youre sick, but they may be helpful for the following symptoms: cough (Robitussin DM); sore throat (Chloraseptic lozenges or spray); nasal and sinus congestion (Actifed, Sudafed, Chlortrimeton). Follow Up with your doctor or as advised if you dont improve over the next week. Get Prompt Medical Attention if any of the following occur: -- Cough with lots of colored sputum (mucus) or blood in your sputum -- Chest pain, shortness of breath, wheezing or have trouble breathing -- Severe headache; face, neck or ear pain -- Fever over 100.4 F (38.0 C) for more than three days -- You cant swallow due to throat pain Dehydration (Adult) Dehydration occurs when your body loses too much fluid. This may be the result of vomiting a lot or from diarrhea,sweating a lot, or a high fever. It may also happen if you dont drink enough fluid when youre sick. Misuse of diuretics (water pills) can also be a cause. Symptoms include thirst and feeling dizzy, weak, fatigued, or very drowsy. The diet described below is usually enough to treat most cases. Sometimes you may needmedicine. Home Care Follow these guidelines for home care: Drink at least 12 8-ounce glasses of fluid every day to overcome the dehydration. Fluid may include water; orange juice; lemonade; apple, grape, and cranberry juice; clear fruit drinks; electrolyte replacement and sports drinks; and teas and coffee without caffeine. If you have been diagnosed with a kidney disease, ask your doctor how much and what types of fluids you should drink to prevent dehydration. If you have kidney disease, drinking too much fluid can cause it build up in the your body and be dangerous to your health. If you have fever, muscle aching, or headache from a viral syndrome, you may useacetaminophen or ibuprofen, unless another medicine was prescribed for this.If you have chronic liver or kidney disease or ever had a stomach ulcer or GI bleeding, talk with your doctor before using these medicines. Don't take aspirin if you are younger than 18 and are ill with a fever.Aspirin raises the chance forsevere liver injury. Follow-up care Follow up with your health care provider if you don't get better in the next 24 to 48 hours. When to seek medical care Get prompt medical attention if any of theseoccur: Continued vomiting (cant keep liquids down) Frequent diarrhea (more than 5 times a day); blood (red or black color) or mucus in diarrhea Blood in vomit or stool Swollen abdomen or increasing abdominal pain Weakness, dizziness, or fainting Unusually drowsy or confused Reduced urine output or extreme thirst Fever of 100.4 F (38 C) oral or higher that does not get better with fever medication You have been given the following additional information: Syncope, Unk Cause Uri, Viral, No Abx (Adult) Dehydration (Adult) (Electronically signed by Martin Wright Dr. 03/26/2016 8:59)
--- NOTE | 2016-03-26 08:59 | ED MED RECONCILIATION SUMMARY ---
Patient: ZOIE PETTY Medication Reconciliation Report [facility] VisitID: [id number] [address] [place] [address] 40y, F Registration Date/Time: 03/22/2016 Weight: 78.0 kg Height/Length: 68 in. BMI: 26.2 ALLERGIES: "all pain meds but Dilaudid" The patient's Home Medications are listed below: CONTINUE TAKING THE FOLLOWING MEDICATIONS: Ascorbic Acid Oral 1000 mg, daily Ativan Oral Collace 100 mg, PRN Glucosamine-Chondroitin Oral 2 tabs, daily Hydrochlorothiazide Oral 25 mg, daily Melatonin 10 mg, at bedtime, take 2 tablets Mrs, every 12 hours, mushroom supplement Multivitamins Oral 2 pills, for her Neurontin Oral 300 mg, take 2 tablets in the am3 tablets at pm Prochlorperazine Maleate Oral Relax, PRN Robaxin 500 mg, PRN Tramadol 50 mg, PRN Ventolin HFA Inhalation Wellbutrin Oral 150 mg, 2x a day Zinc 30 mg, daily Zofran ODT Oral The source(s) of the original Home Medication information: patient The following Medications were given to the patient in the Emergency Department: IV NS IV Fluids bolus 0, then 999 mL/hr, administered: 03/22/2016 6:25:00 AM Tramadol [PO] PO 50 mg, administered: 03/22/2016 6:30:00 AM Tramadol [PO] PO 50 mg, administered: 03/22/2016 8:28:00 AM The following Medications were prescribed to the patient: None.
--- NOTE | 2016-03-26 08:59 | ED MAR SUMMARY ---
..... Medication Administration Record [facility] [address] [place] [address] Patient: ZOIE PETTY Visit ID: [id number] 40y, F Weight: 78.0 kg Height/Length: 68 in BMI: 26.2 ALLERGIES: "all pain meds but Dilaudid" Start 06:25 03/22/2016 Jaclyn Ruano R.N., Stop 08:03/22/2016 Ashley Cade R.N. Medication Administered: IV NS (SALINE), Dose: IV Fluids over 1 hour(s), Rate: 999 mL/hr, Dispensed: 1000 mL bag, Site: #1 right subclav. Medication Ordered: IV NS : initial bolus 1000 mL (1000 mL/hr), then none - for X1 (NOW). Given 06:30 03/22/2016 Jaclyn Ruano R.N. Medication Administered: TRAMADOL [PO] (TRAMADOL HCL), Dose: 50 mg Tablets PO. Medication Ordered: Tramadol PO 50 mg (NOW). Given 08:28 03/22/2016 Ashley Cade RMaryNMary Medication Administered: TRAMADOL [PO] (TRAMADOL HCL), Dose: 50 mg Tablets PO. Medication Ordered: Tramadol PO 50 mg (NOW).
== END 2016-03-22 09:45 | disposition home or self-care (01) ==
LOC: ED SRH 05:20
DX: R55 Syncope and collapse (principal); E86.0 Dehydration; J06.9 Acute upper respiratory infection, unspecified; R74.0 Nonspecific elevation of levels of transaminase and lactic acid dehydrogenase [LDH]; K21.9 Gastro-esophageal reflux disease without esophagitis; I10 Essential (primary) hypertension; Z79.899 Other long term (current) drug therapy
CPT/HCPCS: 90004; 90100; 93070; 95059